=== PATIENT | male | born 1980 | race Caucasian/White ===

== ENCOUNTER 2017-06-29 22:05 | Emergency (ER) | payer SELFPAY ==
[~2017-06-29] VITALS: Ht 152.4 cm; Wt 45.4 kg
--- NOTE | 2017-06-29 22:05 | NUR ---
PT REFUSES TAKING TEMPERATURE ON TRIAGE
--- NOTE | 2017-06-29 22:07 | NUR ---
PT BIBRA FROM THE STREETS TO ER BED 15. HERE FOR ETOH. PT IS SHOUTING PROFANITY, UNCOOPERATIVE TO STAFF. REFUSING TO ANSWER QUESTION. PLACED ON MONITOR. NAD NOTED. AWAITING MD HEWITT.
--- NOTE | 2017-06-30 00:35 | NUR ---
REPORT TO CHARGE NURSE RADHA FOR [facility].
--- NOTE | 2017-06-30 02:00 | NUR ---
pt sleeping comfortably on bed. awakens to name then returns to sleep. vss, nad noted. will cont to monitor.
--- NOTE | 2017-06-30 04:07 | NUR ---
Patient given written and verbal discharge instructions. Patient verbalizes understanding of instructions. Patient is ambulatory with steady gait. Refuses offer of penitentiary placement. Patient given list of available shelters in surrounding area.
[2017-06-30 04:09] VITALS: BP 132/76
== END 2017-06-30 04:09 | disposition home or self-care (01) ==
LOC: ER 22:23
DX: F10.10 Alcohol abuse, uncomplicated (principal)
CPT/HCPCS: 82962; 99283; A4606; Z7610